=== PATIENT | female | born 1940 | race Caucasian/White ===

== ENCOUNTER 2018-04-03 11:31 | Outpatient (CLI) | payer OTHER ==
[~2018-04-03 11:31] MED LIST: ANASTROZOLE1 MG; ATACAND16 MG; NEURONTIN PO; PRAVASTATIN SOD10 MG; RALOXIFENE HCL60 MG; SYNTHROID50 MCG; ULTRACET PO
== END 2018-04-03 11:39 | disposition home or self-care (01) ==
LOC: RAD 11:31
DX: M25.531 Pain in right wrist (principal)

== ENCOUNTER → 2018-04-24 | Outpatient (CLI) | payer OTHER | END | disposition home or self-care (01) | LOC: RAD 11:37 | DX: M54.5 Low back pain (principal); M54.6 Pain in thoracic spine ==

== ENCOUNTER 2019-09-22 14:37 | Inpatient (IN) | payer OTHER ==
[~2019-09-22] VITALS: Ht 160 cm; Wt 54.4 kg
--- NOTE | 2019-09-22 15:22 | NUR ---
PTE ALERTA Y ORIENTADA X 3 ESFERAS QUIEN REFIERE DESED HACE 4 BARNHATR TIENE PIERNAS HINCHADAS Y PIEL AMARILLA,FAMILIAR CORROBORA INFORMACION.PTE NO PRESENTA DIFICULTAD RESP AL MOMENTO.
[2019-09-22] MEDS ORDERED: CLONAZEPAM0.5 MG (15:34)
[2019-09-22] MEDS ORDERED: TOPROL XL25 M1 (15:34)
--- NOTE | 2019-09-22 16:43 | NUR ---
PACIENTE ALERTA Y ORIENTADA EN [place] ESFERAS, RAMO GarciaCROW PATITO MUESTRAS DE JANIE BAJO MEDIDAS ASEPTICAS, ADMINISTRA MEDICAMENTOS AROLDO ORDEN MEDICA, ORIENTA PACIENTE SOBRE PROCEDIMIENTOS Y MEDICACION PACIENTE VERBALIZA ENTENDER.,
--- NOTE | 2019-09-22 21:15 | NUR ---
SE COLOCA OMRGAN A PTE UTILIZANDO MEDIDIAS ASEPTICAS Y ESTERILES.
== END 2019-09-29 16:48 | disposition designated cancer center or children's hospital (05) | DRG 445 ==
LOC: ER 14:37 → SEC-K 21:08 → MEDI 21:08 → MEDJ 21:08 → MEDI 09-23 00:49 → MEDJ 09-23 02:06
PROVIDERS: ADMIT Internal Medicine
PROC: BW21ZZZ Computerized Tomography (CT Scan) of Abdomen and Pelvis (ICD-10-PCS; 2019-09-22)
PROC: BW40ZZZ Ultrasonography of Abdomen (ICD-10-PCS; 2019-09-22)
PROC: 0FJB8ZZ Inspection of Hepatobiliary Duct, Via Natural or Artificial Opening Endoscopic (ICD-10-PCS; principal; 2019-09-23)
PROC: BF14YZZ Fluoroscopy of Gallbladder, Bile Ducts and Pancreatic Ducts using Other Contrast (ICD-10-PCS; 2019-09-23)
DX: K83.1 Obstruction of bile duct (principal); R18.8 Other ascites; C79.51 Secondary malignant neoplasm of bone; N13.30 Unspecified hydronephrosis; K56.41 Fecal impaction; Z85.3 Personal history of malignant neoplasm of breast; M54.5 Low back pain; F43.21 Adjustment disorder with depressed mood